=== PATIENT | male | born 1955 | race Caucasian/White ===

== ENCOUNTER 2016-05-12 13:00 | Emergency (ER) | payer MEDICARE, OTHER ==
[~2016-05-12 13:00] MED LIST: ACET500CAP PO; AMB10 PO; AMB5 PO; ASAB PO; BACTRONASA NAS; C5 PO; COREG3 PO; COREG6 PO; COUMADIN10 MG PO; COUMADIN4 MG PO; CYMBALTA60 PO; GLUCOPHAGE1000 MG PO; GLUCPH PO; IMDUR30 PO; JANUMET1 TAB PO; L20 PO; LAMIS15 TOP; LANTUS SC; LEVEMFLXPN SC; LEVEMIR SC; LIPITOR40 PO; LOTE20 PO; LOTENSIN HCT1 TA2 PO; NORCO1 TA1 PO; NORCO1 TAB PO; NORV10 PO; NOVOLOG SC; NOVOPEN SC; PCET PO; PRIN5 PO; PRISTIQ100 MG PO; TOUJEO; TRAZODONE150 MG PO
[2016-05-12 13:25] LABS: BASOPHILS 0.3 %; BASOPHILS ABSOLUTE 0.02 10/3/uL (0.0-0.16); EOSINOPHILS ABSOLUTE 0.08 10/3/uL (0.0-0.53); ER CBC TAT 0 Hrs 00 Mins; IMMATURE GRANULOCYTES 0.4 %; IMMATURE GRANULOCYTES ABSOLUTE 0.03 10/3/uL (0.0-0.11); LYMPHOCYTES 19.5 %; LYMPHOCYTES ABSOLUTE 1.54 10/3/uL (0.67-4.30); MEAN CORPUSCULAR HEMOGLOB 26.8 pg (26.0-34.0); MEAN PLATELET VOLUME 10.3 fL (9.2-13.0); MONOCYTES 5.8 %; MONOCYTES ABSOLUTE 0.46 10/3/uL (0.21-1.20); NEUTROPHILS ABSOLUTE 5.78 10/3/uL (2.02-8.40); RBC DISTRIBUTION WIDTH 15.1 % (12.0-16.0); WHITE BLOOD CELLS 7.9 10/3/uL (4.5-10.5)
[2016-05-12 13:27] LABS: HEMATOCRIT 47.6 % (40.0-51.0); HEMOGLOBIN 16.2 g/dL (13.6-17.8); MANUAL DIFF NO %; MEAN CORPUSCULAR VOLUME 78.7 fL (80-100); PLATELET COUNT 155 10/3/uL (150-400); RED CELL COUNT 6.05 10/6/uL (4.7-6.1)
[2016-05-12 13:36] LABS: INTERNATIONAL NORMAL RATI 1.9 UNITS (-); PARTIAL THROMBO TIME 32.6 SEC (22.5-37.2); PROTIME (NOT ORD) 21.5 SEC (12.0-14.5)
[2016-05-12 13:39] LABS: ASCORBIC ACID (UR NOT ORDER) NEG (NEG); BILIRUBIN, URINE NEGATIVE (NEG); ER URINALYSIS TAT 0 Hrs 21 Mins; KETONE, URINE NEGATIVE (NEG); LEUKOCYTE ESTERASE(NOT OR NEG (NEG); NITRITE (URINE) NEG (NEG); WBC (NOT ORDERED) (RFLEX) 3 (0-5)
[2016-05-12 13:40] LABS: A/G RATIO 0.7 (0.7-1.9); ALBUMIN 3.5 G/DL (3.5-5.0); ALKALINE PHOSPHATASE 109 U/L (45-117); CALCIUM, SERUM 8.6 MG/DL (8.5-10.4); CHLORIDE, SERUM 97 MMOL/L (96-112); CO2 (CARBON DIOXIDE) 25 MMOL/L (24-34); CREATININE 1.15 MG/DL (0.70-1.30); GFR AFRICAN AMERICAN 79 ML/MIN (>=60); GFR NON AFRICAN AMERICAN 68 ML/MIN (>=60); SGOT(AST) 29 U/L (5-40); SGPT(ALT) 32 U/L (5-65); SODIUM, SERUM 135 MMOL/L (135-148); TOTAL BILIRUBIN 0.8 MG/DL (0-1.2); TOTAL PROTEIN 8.5 G/DL (6.0-8.5)
[2016-05-12 13:42] LABS: BUN (BLOOD UREA NITROGEN) 11 MG/DL (6-23); GLUCOSE, SERUM 292 MG/DL (60-99)
[2016-05-12 13:50] LABS: LACTATE 1.9 MMOL/L (0.3-2.4)
[2016-09-04] MEDS ORDERED: HALF81 PO (17:20)
[2016-09-04] MEDS ORDERED: NORV10 PO (17:20)
[2016-09-04] MEDS ORDERED: ACET500CAP PO (17:23)
[2016-09-04] MEDS ORDERED: LIPITOR40 PO (17:24)
[2016-09-04] MEDS ORDERED: LOTENSIN HCT1 TA2 PO (17:24)
[2016-09-04] MEDS ORDERED: COREG3 PO (17:25)
[2016-09-04] MEDS ORDERED: K500 PO (17:26)
[2016-09-04] MEDS ORDERED: CYMBALTA60 PO (17:26)
[2016-09-04] MEDS ORDERED: L20 PO (17:27)
[2016-09-04] MEDS ORDERED: HUMALOG KW200 UNIT/1 SQ (17:28)
[2016-09-04] MEDS ORDERED: IMDUR30 PO (17:29)
[2016-09-04] MEDS ORDERED: LEVEMFLXPN SC (17:29)
[2016-09-04] MEDS ORDERED: GLUCOPHAGE1000 MG PO (17:30)
[2016-09-04] MEDS ORDERED: TOUJEO SQ (17:35)
[2016-09-04] MEDS ORDERED: COUMADIN6 MG PO (17:36)
[2016-09-04] MEDS ORDERED: AMB10 PO (17:46)
[2016-10-24] MEDS ORDERED: OXYCOD PO ×2 (13:14→13:15)
== END 2016-05-12 15:12 | disposition home or self-care (01) ==
LOC: ER 13:00
PROVIDERS: Emergency Medicine
DX: S91.331A Puncture wound without foreign body, right foot, initial encounter (principal); J02.9 Acute pharyngitis, unspecified; I10 Essential (primary) hypertension; E11.9 Type 2 diabetes mellitus without complications; Z95.1 Presence of aortocoronary bypass graft; Z87.442 Personal history of urinary calculi; Z88.1 Allergy status to other antibiotic agents; Z79.4 Long term (current) use of insulin; Z79.82 Long term (current) use of aspirin; Z79.01 Long term (current) use of anticoagulants; Z79.899 Other long term (current) drug therapy; W22.8XXA Striking against or struck by other objects, initial encounter
CPT/HCPCS: 73630-RT; 80053; 81001; 83605; 83690; 85025; 85610; 85730; 87040; 87070; 87880; 90714; 93005; 96374; 99284; A9270-GY